=== PATIENT | male | born 1985 | race Caucasian/White ===

== ENCOUNTER 2025-03-26 05:59 | Emergency (ER) | payer OTHER, SELFPAY ==
--- NOTE | ~2025-03-26 | MR_ITS ---
EXAMINATION: MR LUMBAR SPINE WITHOUT CONTRAST CLINICAL INFORMATION: Saddle anesthesia. Urinary incontinence and retention.. COMPARISON: None available. TECHNIQUE: MRI of the lumbar spine was obtained using routine sequences without contrast. FINDINGS: Last rib-bearing vertebra labeled T12. Disc desiccation at L5-S1 and L4-5. Grade 1 retrolisthesis L5-S1. Modic type II endplate changes in the inferior endplate of L4. Conus medullaris ends at inferior endplate of T12 with normal signal. T12-L1: No disc herniation. No neuroforamina stenosis. L1-2: Broad-based disc bulging. No central spinal canal or neuroforamina stenosis. L2-3: Broad-based disc bulging. Facet joint and ligamentum flavum hypertrophy. No compression upon neural elements. L3-4: Broad-based disc bulging. Facet joint and limited hypertrophy. Reduced AP diameter of the thecal sac and neuroforamina without compression upon neural elements. L4-5: Broad-based disc bulging. Facet joint and ligamentum flavum hypertrophy. Reduced AP diameter of the thecal sac encroaching the L5 nerve root on there lateral recesses. No gross neuroforamina stenosis. L5-S1: There is a broad-based disc bulging and bilateral facet joint hypertrophy resulting in central spinal canal and to a lesser extent bilateral neuroforamina stenosis. There is an isointense T2 and T1 signal within the extradural/epidural/subdural compartment of the central spinal canal mostly on the left lateral aspect compressing both S1 nerve roots and to a lesser extent left S2 nerve roots on the lateral recesses. There is engorgement of the left S1 and left S2 nerve roots. Cystic lesion, right kidney. MR/MR lumbar spine wo con IMPRESSION: Broad-based disc bulging at L5-S1 compressing the S1 nerve roots and likely left S2 nerve root. A focal extruded disc to the left side with the caudal migration cannot be entirely excluded. Consider IV contrast enhanced. Engorgement of the left S1 and possibly S2 nerve roots Central spinal canal stenosis on a degenerative basis at L4-5. Electronically signed by: Stanford Holman MD 03/26/2025 01:35 PM EST
[2025-03-26 06:00] VITALS: BP 135/88; PULSE 79; RESP 18; TEMP 36.4; O2SAT 96; BMI 26.5
--- OUTSIDE RECORDS SUMMARY | 2025-03-26 06:27 | XMS_ITS | Clinical Summary ---
Author Organization [facility] Address [address] [place] [phone] Phone Care Team Providers Care It Intern Name Role Phone Pcp, Unknown Primary Care Provider Unavailabl e Allergies No known active allergies Medications ibuprofen (ADVIL,MOTRIN) 800 MG tablet Take 1 tablet (800 mg total) by mouth 3 (three) times a day for 3 days. then tid prn. 30 tablet 11/06/2024 Active cyclobenzaprine (FLEXERIL) 10 MG tablet Take 1 tablet (10 mg total) by mouth 3 (three) times a day as needed (muscle). 15 tablet 11/06/2024 Active Active Problems No known active problems Immunizations Immunization Administration Dates Next Due Tdap 04/14/2024 Social History Tobacco Use Types Packs/Day Years Used Date Smoking Tobacco: Never Tobacco Cessation:Counseling Given: Not Answered Education Answer Date Recorded Are you interested in more education? Not on arturo e 04/14/2024 Are you concerned about learning? Not on file 04/14/2024 No 04/14/2024 No 04/14/2024 Digital Access Answer Date Recorded No 04/14/2024 No 04/14/2024 Reliable internet access at home? Not on file 04/14/2024 Device with a working camera? Not on file Sex and Gender Information Value Date Recorded Sex Assigned at Not on file Legal Sex Male 3:08 PM EST Gender Identity Not on file Sexual Orientation Not on file Last Filed Vital Signs Vital Sign Reading Time Taken Comments Blood Pressure 122/83 11/06/2024 5:12 PM EDT Pulse 71 11/06/2024 5:12 PM EDT Temperature 36.6 C (97.9 F) 11/06/2024 5:12 PM EDT Respiratory Rate 12 11/06/2024 5:12 PM EDT Oxygen Saturation 98% 11/06/2024 5:12 PM EDT Inhaled Oxygen Concentration - - Weight 83.9 kg (185 lb) 04/30/2024 5:37 PM EST Height 175.3 cm (5' 9 ) 04/30/2024 5:37 PM EST Body Mass Index 27.32 04/30/2024 5:37 PM EST Plan of Treatment Health Maintenance Due Date Last Done Comments LIPID PANEL 1985 DEPRESSION SCREENING 1997 HEPATITIS C SCREENING 12/07/2003 HIV ONE-TIME SCREENING (18-6 5 YEARS) 12/07/2003 SCREENING FOR DIABETES 2020 INFLUENZA VACCINE (#1) 2024 COVID-19 VACCINE (2024-2 6 season) 2025 Adult Td,Tdap Booster 04/14/2034 04/14/2024 SMOKING STATUS SCREENING (On ce After 26 Yrs) Completed 11/06/2024 HEPATITIS A VACCINES Aged Out No long er eligible based on patient's age to complete this topic HIB VACCINES Aged Out No longer eligi ble based on patient's age to complete this topic MENINGOCOCCAL VACCINES (ACWY) Aged Out No longer eligible based on patient's age to complete this topic MENINGOCOCCAL VACCINES (B) Aged Out N o longer eligible based on patient's age to complete this topic PNEUMOCOCCAL VACCINES (0-49 years) Aged Out No longer eligible based on patient's age to complete this topic Medical Devices Not on file Insurance [facility] Address: [address] [address] Care Teams It Intern Relationship Specialty Start Date End Date Pcp, Unknown PCP - General 04/14/24 Additional Source Comments The information contained in this document represents components of the legal health record. It is not the complete legal health record.[facility]
--- NOTE | 2025-03-26 07:02 | PC.NURSE ---
at 0635 bladder scan was ordered by Dr Craig verbal and 422 mL present in bladder. MD made aware. plan for MRI, screening form completed by Leda KING. handover care to Franny KING.
--- NOTE | 2025-03-26 07:06 | ED.BACK ---
HPI - Back Pain/Injury General Chief Complaint: Back Pain/Injury Stated Complaint: back pain Time Seen by Provider: 03/26/25 06:09 Source: patient Mode of arrival: ambulatory Limitations: no limitations History of Present Illness ED Provider: NILDA PAZ Narrative: 39-year-old male with a past medical history of known lower lumbar herniated disc managed by [facility]. However he thinks it is at L4-L5 but he is not sure. He takes gabapentin. He has no history of IVDA or blood thinner use. Over the past couple of days he has noted some increased pain with sciatica down the left leg, he felt like he could not work as 10 hour shift yesterday. A friend gave him veterinary liniment that he applied on his left buttock and left leg, it really did improve his pain. He apply that yesterday at 04:30. It worked so well he applied a little bit more to the left buttock. Around 09:30 he started to notice numbness of the scrotum and penis he did not apply any ointment to those areas. He also notes it is very hard to urinate and he has to lean forward to get his urine to come out, he woke up and noticed his underwear was wet as well. He denies any new trauma. He states he has no pain right now, but he has never experienced the urinary symptoms are numbness before.Symptoms > 24 hours. MD elicited complaint: other Onset (ago): day(s) (24+) Timing: constant Severity: moderate Location: lumbar spine Radiation: none Exacerbating factors: none Relieving factors: none Context: other Associated symptoms: numbness, urinary incontinence and parasthesias Work related injury: No Related Data Allergies Allergy/AdvReac Type Severity Reaction Status Date / Time No Known Allergies Allergy Verified 03/26/25 06:03 Review of Systems Review of Systems: Constitutional : No Weight loss, No Fever, No Chills, ENT/Mouth : No Hearing loss, No Ear Pain, No Nasal Congestion, No Sinus Pain, No Hoarseness, No sore throat, No Rhinorrhea, No Swallowing Difficulty Cardiovascular : No Chest Pain, No SOB Respiratory : No Cough, No Dyspnea Gastrointestinal : No Nausea, No Vomiting, No Diarrhea, No abdominal Pain, No Hematochezia, No Melena Genitourinary : No Dysuria, No Urinary Frequency, No Hematuria, No Urinary Incontinence, Musculoskeletal : positive back pain Skin : No Skin Lesions, No rash Neuro : No Weakness, No Numbness, pos Paresthesias, pos loss of bowel or bladder incontinence, pos saddle anesthesia Yes all other systems are reviewed and are negative [facility] Past Medical History Attestation statement: The following information was validated with the patient. Medical History Herniated lumbar intervertebral disc Social History Social History (Updated 03/26/25 @ 07:07 by Radha Craig DO) Patient Tobacco Use Status: Never used Tobacco Smoked in Last 30 Days: No Use of substances other than those prescribed or required for medical reasons: No Advance Directives: No Advance Directives Information Provided: No Physical Exam Vital Signs: Vital Signs: Last Vital Signs Temp 97.8 F 03/26/25 14:11 Pulse 87 03/26/25 14:24 Resp 16 03/26/25 14:24 BP 125/82 03/26/25 14:24 Pulse Ox 97 03/26/25 14:24 O2 Del Method Room Air 03/26/25 14:24 BMI result Body Mass Index 26.5 Appearance: Alert. Oriented X3. No acute distress. Eyes: Pupils equal, round and reactive to light. ENT: Pharynx normal. Neck: Normal inspection. Neck supple. CVS: Normal heart rate and rhythm. Pulses normal. Respiratory: No respiratory distress. Breath sounds normal. Abdomen: Soft and nontender. Rectal: He has diminished tone on rectal exam Skin: Skin warm and dry. Normal skin color. Normal skin turgor. Extremities: No lower extremity edema. Neuro: Oriented X 3. No motor deficit. sensation decreased in bilateral buttocks, perineum and scrotum/penile area, retaining 422 urine does not have urge to urinate. CN2-12 intact, L5 5/5 bilaterally, 2+ DTR in achilles and patella bilaterally Course Course Course Narrative: I called down to MRI to discuss concerns at 07:00 and need for emergent MRI Repeat attempts to get patient into emergent MRI at this time they are able to get him in around 11:00 the symptoms have been greater than 24 hours he has no new worsening neuro deficits while waiting he has the same symptoms he has had since 09:30 yesterday Reevaluation(s) Reevaluation #1: He is sitting in the bed walking around no issues I am going to obtain a postvoid residual he still states he is very numb on exam but has no other motor deficits, PVR [phone] call out to [facility] - they state they are closed to transfer 155pm call to [facility] Patient is aware and is okay with transfer Accepted to 30 20:00 on 03/26/2025 will go to [facility] emergency department the accepting attending is Concha We are now being told his transfer will not occur until 0730 due to EMS times we are calling back to stress the importance of his transfer on an emergent basis 14:56 Medical Decision Making Medical Decision Making [facility] Narrative: 39-year-old male with known lower lumbar herniated disc who comes in with saddle anesthesia, retention, urinary incontinence, he has no risk factors such as IVDA or blood thinners use, I am not suspecting an abscess or infection, he already has a known herniated disc, he has no other symptoms such as fevers or weight loss to suggest malignancy. He has had prior MRI with documentation of herniated disc. I am going to obtain stat MRI to rule out cauda equina. Patient is aware bladder scan showing 422 of urine and he does not feel he needs to urinate. Patient is aware I am concerned about cauda equina and that this has occurred over 24 hours out he is aware at some point we will need to involve Neurosurgery after his MRI, we will dose of IV dexamethasone Differential Diagnosis Differential Diagnoses: The differential diagnosis associated with the presentation includes Herniated disc, cauda equina, reaction to ointment Admission/Observation Consideration of admission/observation: Escalation of care including admission/observation considered Needs transfer to Center with neurosurgical capabilities Independent Interpretation I performed an independent interpretation of an: MRI Interpretation: EXAMINATION: MR LUMBAR SPINE WITHOUT CONTRAST CLINICAL INFORMATION: Saddle anesthesia. Urinary incontinence and retention.. COMPARISON: None available. TECHNIQUE: MRI of the lumbar spine was obtained using routine sequences without contrast. FINDINGS: Last rib-bearing vertebra labeled T12. Disc desiccation at L5-S1 and L4-5. Grade 1 retrolisthesis L5-S1. Modic type II endplate changes in the inferior endplate of L4. Conus medullaris ends at inferior endplate of T12 with normal signal. T12-L1: No disc herniation. No neuroforamina stenosis. L1-2: Broad-based disc bulging. No central spinal canal or neuroforamina stenosis. L2-3: Broad-based disc bulging. Facet joint and ligamentum flavum hypertrophy. No compression upon neural elements. L3-4: Broad-based disc bulging. Facet joint and limited hypertrophy. Reduced AP diameter of the thecal sac and neuroforamina without compression upon neural elements. L4-5: Broad-based disc bulging. Facet joint and ligamentum flavum hypertrophy. Reduced AP diameter of the thecal sac encroaching the L5 nerve root on there lateral recesses. No gross neuroforamina stenosis. L5-S1: There is a broad-based disc bulging and bilateral facet joint hypertrophy resulting in central spinal canal and to a lesser extent bilateral neuroforamina stenosis. There is an isointense T2 and T1 signal within the extradural/epidural/subdural compartment of the central spinal canal mostly on the left lateral aspect compressing both S1 nerve roots and to a lesser extent left S2 nerve roots on the lateral recesses. There is engorgement of the left S1 and left S2 nerve roots. Cystic lesion, right kidney. MR/MR lumbar spine wo con IMPRESSION: Broad-based disc bulging at L5-S1 compressing the S1 nerve roots and likely left S2 nerve root. A focal extruded disc to the left side with the caudal migration cannot be entirely excluded. Consider IV contrast enhanced. Engorgement of the left S1 and possibly S2 nerve roots Central spinal canal stenosis on a degenerative basis at L4-5. Radiology Impression Discussion of test interpretation with radiology: I have reviewed the radiologist's reading. External Record Review External record reviewed: Outpatient record Prescription Management I considered prescription management with: Other Discharge Plan Discharge Clinical Impression: Acute urinary retention, Overflow incontinence, Saddle anesthesia, Bulging lumbar disc Patient Disposition: [facility] Transfer Details: TO: [facility], [address] [place] [address], [place] Referrals: Jhony Leigh MD [Primary Care Provider, Internal Medicine] Print Language: Mohawk
--- NOTE | 2025-03-26 07:32 | PC.NURSE ---
report obtained from [facility], patient a&ox3, vss, rr equal/non labored, c/o [phone] back pain, per report pt bladder scan was 422, mri screening form previously obtained, pt presently awaiting MRI. call reagan within reach, plan of care ongoing
[2025-03-26 09:48] VITALS: BP 124/85; PULSE 71; RESP 16; O2SAT 97
[2025-03-26 14:11] VITALS: BP 125/82; PULSE 93; RESP 16; TEMP 36.6; O2SAT 99
--- NOTE | 2025-03-26 14:12 | PC.NURSE ---
patient a&ox3, vss, pt states his bilateral buttocks and groin are numb, currently denying pain/discomfort, bladder scan was repeated and was 646, patient did urinate again after that bladder scan. pt sitting at bedside, call reagan within reach, plan of care ongoing
[2025-03-26 14:24] VITALS: BP 125/82; PULSE 87; RESP 16; O2SAT 97
--- NOTE | 2025-03-26 15:02 | PC.NURSE ---
patient medicated per order
[2025-03-26 15:50] VITALS: BP 125/82; PULSE 93; RESP 18; TEMP 36.6; O2SAT 99
== END 2025-03-26 15:54 | disposition short-term general hospital (02) ==
PROVIDERS: Emergency Provider Emergency Medicine; PCP Internal Medicine
DX: R33.8 Other retention of urine (principal); N39.490 Overflow incontinence; R20.0 Anesthesia of skin; M51.360 Other intervertebral disc degeneration, lumbar region with discogenic back pain only
CPT/HCPCS: 51798; 72148; 96374; 99285; J1100

== ENCOUNTER → 2025-03-26 07:01 | Outpatient (BNV) | payer OTHER, SELFPAY | PROVIDERS: Emergency Provider Emergency Medicine; PCP Internal Medicine; Visit Provider Radiology Diagnostic Radiology | DX: M48.061 Spinal stenosis, lumbar region without neurogenic claudication (principal) | CPT/HCPCS: 72148 ==